=== PATIENT | female | born 1995 | race Caucasian/White ===

== ENCOUNTER 2023-08-28 10:39 | Emergency (ER) | payer OTHER ==
[~2023-08-28] VITALS: Ht 160 cm; Wt 82.1 kg
[2023-08-28 10:53] VITALS: BP 131/68; PULSE 57; RESP 20; TEMP 97.8; O2SAT 97
== END 2023-08-28 13:59 | disposition home or self-care (01) ==
LOC: MED 10:39
DX: S09.90XA Unspecified injury of head, initial encounter (principal); Y04.0XXA Assault by unarmed brawl or fight, initial encounter; Y92.89 Other specified places as the place of occurrence of the external cause; Y93.89 Activity, other specified; Y99.8 Other external cause status
CPT/HCPCS: 70450; 99284